=== PATIENT | male | born 1975 | race African-American/Black ===

== ENCOUNTER 2019-03-08 13:48 | Inpatient (IN) | payer OTHER ==
[2019-03-08] MEDS ORDERED: Insulin Regular 300 UNITS/3 ML VIAL SC PRN ×2 (15:14)
[2019-03-08] MEDS ORDERED: Ondansetron ODT 4 MG TAB PO PRN (15:14)
[2019-03-08] MEDS ORDERED: Acetaminophen 650 MG Suppository PR PRN (15:14)
[2019-03-08] MEDS ORDERED: Ondansetron PF 4 MG/2 ML Vial IVP PRN (15:14)
[2019-03-08] MEDS ORDERED: Dextrose 50% Abboject 50 ML SYRINGE SLOW IVP PRN (15:14)
[2019-03-08] MEDS ORDERED: Calcium Carbonate 500 MG ChewTAB PO PRN (15:14)
[2019-03-08] MEDS ORDERED: Dextrose 5% in Water 1,000 ML IV PRN (15:14)
[2019-03-08] MEDS ORDERED: Nicotine 14 MG PATCH TD PRN (15:19)
[2019-03-08] MEDS ORDERED: Labetalol HCl 100 MG/20 ML VIAL SLOW IVP PRN (15:19)
[2019-03-08 15:35] LABS: #Basophils 0.1 thou/uL (0.0-0.2); #Eosinphils 0.1 thou/uL (0.0-0.7); #Lymphocytes 3.7 thou/uL (1.20-3.40); #Monocytes 0.8 thou/uL (0.11-0.59); #Neutrophils 6.5 thou/uL (1.40-6.50); %Basophils 0.5 % (0.0-1.0); %Eosinophils 0.5 % (0.0-10.0); %Lymphocytes 33.4 % (21.0-51.0); %Monocytes 7.5 % (0.0-10.0); %Neutrophils 58.1 % (42.0-75.0); Hemoglobin 9.8 g/dL (14.0-18.0); Mean Corpuscular HGB CONC 34.1 g/dL (32.0-36.0); Mean Corpuscular Hemoglobin 29.3 pg (27.0-31.0); Mean Corpuscular Volume 86.1 fL (78.0-98.0); Mean Platelet Volume 8.3 fL (7.4-10.4); Platelet Count 291 thou/uL (130-400); RBC Distribution Width 11.8 % (11.5-14.5); Red Blood Cell (RBC) Count 3.33 mill/uL (4.70-6.10); White Blood Cell (WBC) Count 11.1 thou/uL (4.8-10.8)
[2019-03-08 15:55] LABS: Anion Gap 13 mmol/L (10-20); BUN (Urea Nitrogen) 40 mg/dL (8.9-20.6); Calc. Creatinine Clearance 0 mL/min (70-130); Calcium 8.1 mg/dL (7.8-10.44); Carbon Dioxide 19 mmol/L (22-29); Chloride 106 mmol/L (98-107); Estimated GFR-MDRD 83; Glucose 302 mg/dL (70-105); Potassium 4.9 mmol/L (3.5-5.1); Sodium 133 mmol/L (136-145)
[2019-03-08 15:57] LABS: Iron 234 ug/dL (65-175); Iron Binding Capacity, Total 225 mcg/dL (261-462)
[2019-03-08 16:08] LABS: Troponin I 0.028 ng/mL (< 0.028)
[2019-03-08] MEDS: Sodium Chloride 0.9% 1,000 ML IV SCH (18:12)
[2019-03-08 18:23] VITALS: BMI 35.4
[2019-03-08 19:36] LABS: Hemoglobin 9.4 g/dL (14.0-18.0); Platelet Count 270 thou/uL (130-400)
--- NOTE | 2019-03-08 22:26 | HP ---
PRIMARY CARE PHYSICIAN: At [facility]. CHIEF COMPLAINT: Hematemesis. HISTORY OF PRESENT ILLNESS: Mr. Church is a 43-year-old man with past medical history of hypertension, hyperlipidemia, and diabetes mellitus type 2, who had presented to [facility] earlier today after he experienced one episode of a large bright red blood emesis earlier today. He was transferred from [facility] with a suspected GI bleed. He states that the symptoms started earlier this morning, he had felt nauseous just before this event. However, denied any fever, chills, any headache, blurred vision, dizziness, chest pain, palpitations, shortness of breath, or abdominal pain. He states he felt fine leading up to the event and also denied any change in his stool. He had denied any history of liver disease or anticoagulation therapy at this time. His current hemoglobin shows level of 9.8 and type and screen obtained. REVIEW OF SYSTEMS: All other systems reviewed and found to be negative unless mentioned in the HPI. PAST MEDICAL HISTORY: Hypertension, hyperlipidemia, diabetes mellitus type 2. PAST SURGICAL HISTORY: Circumcision. PSYCHIATRIC HISTORY: None. SOCIAL HISTORY: He currently uses tobacco. He states he smokes roughly half pack per day and denies any alcohol or illicit drug use. He is currently incarcerated at [facility]. KNOWN ALLERGIES: No known drug allergies. HOME MEDICATIONS: 1. Amlodipine 10 mg oral daily. 2. Aspirin 81 mg daily. 3. Atenolol 100 mg oral daily. 4. Lisinopril 10 mg oral daily. 5. Metformin 500 mg twice daily. 6. Novolin. 7. Pravastatin 10 mg oral daily. PHYSICAL EXAMINATION: VITAL SIGNS: Blood pressure 119/64, pulse 114, respirations 18, temperature 98.7, O2 saturation 98% on room air. GENERAL: The patient is awake, alert, and oriented x3. He is currently lying comfortably in bed with shackles in place and in no acute distress at this time. HEENT: Atraumatic, normocephalic. Pupils are round and reactive to light. Extraocular muscles intact. Moist mucous membranes noted. NECK: Soft and supple. Trachea midline. CARDIOVASCULAR: Positive S1 and S2. The patient is slightly tachycardic on the monitor. Otherwise, no murmur auscultated. LUNGS: Clear to auscultation bilaterally. No wheezes, rales, or rhonchi. ABDOMEN: Soft, nontender. Bowel sounds present. EXTREMITIES: Moves all extremities equal. Pedal and radial pulses 2+ bilaterally. No edema noted. NEUROLOGIC: Cranial nerves 2 through 12 grossly intact. No focal deficits noted. Speech intact and normal. Gait not assessed. SKIN: Warm, dry and intact. No rashes. No ulceration noted. PSYCHIATRIC: Good mood and affect. LABORATORY DATA: WBC 11.1, RBC 3.33, hemoglobin 9.8, hematocrit 28.7, platelet 291. Sodium 133, potassium 4.9, anion gap 13, BUN 40, creatinine 0.98, estimated GFR 83, glucose 302, ferritin 258.62. Troponin 0.028. DIAGNOSTIC IMAGING: None. ASSESSMENT AND PLAN: 1. Suspected gastrointestinal bleed. We will place patient on PPI therapy at this time and consult GI Services for possible endoscopy for further evaluation. We will make the patient n.p.o. at this time and trend H and H and transfuse as needed. 2. Hypertension. Blood pressure and other vital signs currently stable at this time. Since he will be n.p.o., we will place on IV p.r.n. Antihypertensives as needed. 3. Hyperlipidemia. 4. History of diabetes mellitus type 2. As above, he will be n.p.o.; however, we will monitor Accu-Cheks and place the patient on the insulin sliding scale as needed. 5. Gastrointestinal prophylaxis. 6. Code status, full code. DISPOSITION: Pending further workup and clinical findings. Job ID: [id number]
--- NOTE | 2019-03-08 23:11 | CON ---
DATE OF CONSULTATION: 03/08/2019 REQUESTING PHYSICIAN: Dr. Dela Cruz. REASON FOR CONSULTATION: Hematemesis. HISTORY OF PRESENT ILLNESS: Mr. Jannie Church is a 43-year-old man, an inmate at [place] long term facility. He has a history of hypertension, hyperlipidemia, and diabetes. He denies any significant past gastrointestinal history or any known history of liver disease. He has a history of smoking and also alcohol use, though he has not had any alcohol for almost the past year since he has been incarcerated. He reports that this morning he awoke feeling fairly acutely nauseated and having some diaphoresis as well as dizzy spells. He did not have any syncopal episodes. However, the nausea worsened and he had an episode of acute michelle hematemesis, which was witnessed at his long term facility. This prompted his presentation to the [facility] where he was transferred here for further evaluation. He says he has not had any further episodes of hematemesis since then. His nausea persists, but has lessened a bit. He is not really having any abdominal pain. He has not had any bowel movements today and he says his last bowel movement yesterday was normal. Upon arrival, he is tachycardic to 115, though his blood pressures are normal. Hemoglobin is 9.8 and this is evidently down 1 point from having been checked earlier today. A PPI drip was started and he is being admitted for further evaluation. He has no other complaints. Notably, the patient underwent circumcision 8 days ago and says he has been taking aspirin as well as other [id number] pain relievers over the past week since then. REVIEW OF SYSTEMS: Full review of systems including constitutional, head, eyes, ears, nose, throat, GI, , cardiovascular, respiratory, musculoskeletal, neurologic systems is negative except as noted in the HPI. PAST MEDICAL HISTORY: Hypertension, hyperlipidemia, diabetes, circumcision 1 week ago on 02/28/2019. FAMILY HISTORY: Negative for significant GI illness. SOCIAL HISTORY: He does smoke. He admits to drinking alcohol heavily prior to incarceration, but none for the past 10-11 months. Denies drug use. ALLERGIES: NO KNOWN DRUG ALLERGIES. OUTPATIENT MEDICATIONS: 1. Amlodipine 10 mg daily. 2. Aspirin 325 mg daily. 3. Atenolol. 4. Lisinopril. 5. Metformin. 6. Novolin insulin. 7. Pravastatin. PHYSICAL EXAMINATION: VITAL SIGNS: Temperature 98.7, blood pressure 134/93, pulse 115, 99% oxygen saturation on room air. GENERAL: A 43-year-old gentleman lying in bed comfortably, in no distress. SKIN: No jaundice, no rashes were palpable. EYES: No scleral icterus. Extraocular movements intact. ENT: Mucous membranes moist. No oral lesions. LYMPH: No submandibular, supraclavicular lymphadenopathy. Thyroid nontender to palpation. HEART: Regular rate and rhythm. No murmur appreciated. LUNGS: Clear to auscultation bilaterally. ABDOMEN: Bowel sounds present. Soft, nontender to palpation throughout extremities. No peripheral edema. VESSELS: Radial pulses 2+ bilaterally. NEUROLOGIC: Cranial nerves 2-12 intact bilaterally. No focal deficits. LABORATORY STUDIES: WBC 11.1, hemoglobin 9.8, MCV 86.1, platelets 291. Sodium 133, potassium 4.9, BUN 40, creatinine 0.98, glucose 302, calcium 8.1. Troponin 0.028. Ferritin 258.6, iron 234, TIBC 225. ASSESSMENT/PLAN: 1. Hematemesis, single episode this morning. 2. Acute blood loss anemia. The patient's presentation is consistent with acute upper gastrointestinal bleeding from this morning. Note that he has not had any further episodes of hematemesis since this morning and he has not had any melenic stool either. He is mildly tachycardic, but otherwise stable. He is anemic with hemoglobin of 9.8, though I am not sure exactly what the acuity of this is. Given his risk factors, and presentation, peptic ulcer disease would lead the differential. He has no known evidence of liver disease, so varices seem unlikely and clinically, this does not appear to represent a variceal bleed. I agree with the Protonix IV infusion. This should be continued. I would keep him on n.p.o. status for now. We will plan for diagnostic EGD tomorrow; however, continue to trend hemoglobin and hematocrit and watch clinically. If the patient has significant change or deterioration in clinical status, this could always be performed on a more emergent basis tonight. 3. Please do not hesitate to call anytime with questions or concerns. 4. Thank you for the consultation. Job ID: [id number]
[2019-03-08 23:33] LABS: Hemoglobin 9.4 g/dL (14.0-18.0); Platelet Count 276 thou/uL (130-400)
[2019-03-09] MEDS: Sodium Chloride 0.9% 1,000 ML IV SCH ×4 (00:55→14:46)
[2019-03-09] MEDS: Pantoprazole 80 MG in Sodium Chloride 0.9% 100 ML IVP SCH ×2 (00:55→09:36)
[2019-03-09] MEDS: Melatonin 3 MG TAB PO PRN ×2 (02:34→23:21)
[2019-03-09 06:30] LABS: #Basophils 0.1 thou/uL (0.0-0.2); #Eosinphils 0.2 thou/uL (0.0-0.7); #Lymphocytes 4.1 thou/uL (1.20-3.40); #Monocytes 0.8 thou/uL (0.11-0.59); #Neutrophils 4.7 thou/uL (1.40-6.50); %Basophils 0.6 % (0.0-1.0); %Eosinophils 1.6 % (0.0-10.0); %Lymphocytes 42.2 % (21.0-51.0); %Neutrophils 47.6 % (42.0-75.0); Hemoglobin 8.2 g/dL (14.0-18.0); Mean Corpuscular HGB CONC 34.1 g/dL (32.0-36.0); Mean Corpuscular Hemoglobin 29.7 pg (27.0-31.0); Mean Corpuscular Volume 87.1 fL (78.0-98.0); Mean Platelet Volume 8.2 fL (7.4-10.4); Platelet Count 243 thou/uL (130-400); RBC Distribution Width 12.1 % (11.5-14.5); Red Blood Cell (RBC) Count 2.76 mill/uL (4.70-6.10); White Blood Cell (WBC) Count 9.8 thou/uL (4.8-10.8)
[2019-03-09 06:48] LABS: ALT (SGPT) 14 U/L (8-55); AST (SGOT) 11 U/L (5-34); Alkaline Phosphatase 55 U/L (40-150); Anion Gap 11 mmol/L (10-20); BUN (Urea Nitrogen) 29 mg/dL (8.9-20.6); Bilirubin, Total 0.3 mg/dL (0.2-1.2); Calc. Creatinine Clearance 199 mL/min (70-130); Carbon Dioxide 20 mmol/L (22-29); Chloride 110 mmol/L (98-107); Estimated GFR-MDRD Greater than 90; Globulin 2.4 g/dL (2.4-3.5); Glucose 126 mg/dL (70-105); Magnesium 1.7 mg/dL (1.6-2.6); Potassium 3.5 mmol/L (3.5-5.1); Protein, Total 5.4 g/dL (6.0-8.3); Sodium 137 mmol/L (136-145)
[2019-03-09] MEDS ORDERED: Succinylcholine Chloride 20 MG/ML 10 ml SYRINGE FS ONE (10:25)
[2019-03-09] MEDS ORDERED: Lidocaine 1% PF 5 ML VIAL ONE (10:25)
[2019-03-09] MEDS ORDERED: PROPOFOL 200 MG/20 ML VIAL ONE (10:25)
[2019-03-09] MEDS ORDERED: Fentanyl 100 MCG/2 ML VIAL ONE (13:33)
[2019-03-09] MEDS ORDERED: Ondansetron PF 4 MG/2 ML Vial ONE (13:52)
[2019-03-09] MEDS ORDERED: Promethazine HCl 25 MG/ML VIAL IM PRN (13:53)
[2019-03-09] MEDS ORDERED: Ondansetron HCl/PF 4 MG/2 ML Vial IVP PRN (13:53)
[2019-03-09] MEDS ORDERED: Promethazine HCl 25 MG/ML VIAL SLOW IVP PRN (13:53)
--- NOTE | 2019-03-09 15:27 | OP ---
DATE OF PROCEDURE: 03/09/2019 PROCEDURE PERFORMED: 1. Esophagogastroduodenoscopy with biopsy. 2. Injection of 1:10,000 epinephrine to a total dose of 4.5 mL. 3. Two hemoclips placed over the ulcer with visible vessel. PREOPERATIVE DIAGNOSIS: Gastrointestinal bleeding. POSTOPERATIVE DIAGNOSES: 1. Normal esophagus. 2. Normal gastroesophageal junction. 3. Normal fundus, gastric antrum, and gastric body. 4. Few gastric erosions in the gastric antrum. 5. Two ulcers over the incisura. One of the ulcers showing a visible vessel with no active bleeding. 6. Mild duodenitis. DESCRIPTION OF PROCEDURE: The patient was intubated and was given sedation by Anesthesia Department. A bite block was placed. A Pentax video gastroscope under direct vision passed down the oropharynx past the GE junction into the stomach and also subsequent descending duodenum. The stomach was completely free of any blood. The esophageal mucosa appeared normal throughout. The GE junction, no Sophia-Sol tear seen. Retroflexion failed to show any pathology in fundus or cardia. The gastric body, no pathology. The gastric antrum showed few erosions. There were 2 ulcerations seen near the incisura. One showed a visible vessel, but no active bleeding. The ulcer base appeared clean. 1:10,000 epinephrine injected over the ulcer base to a total dose of 4.5 mL. Following injection, two hemoclips were placed with good hemostasis. Biopsy was obtained of the gastric antrum and gastric body. The duodenal bulb showed mucosal edema, erythema. The descending duodenum, no pathology. RECOMMENDATIONS: 1. Continue IV Protonix. 2. Discontinue n.p.o. 3. Clear liquid diet. 4. He has no recurrence of bleeding. Hopefully, he can go back in the next 24 to 48 hours. Job ID: [id number]
--- NOTE | 2019-03-09 17:19 | PDOC.HOSPP ---
- Subjective Encounter Date: 03/09/19 Encounter Time: 10:00 Subjective: Mr. Church was seen today in follow-up of GI bleed. He does not have any complaints this morning. - Objective Vital Signs & Weight: Vital Signs (12 hours) Temp Pulse Resp BP Pulse Ox 03/09/19 15:50 98.6 F 94 20 122/84 99 03/09/19 14:50 97 18 133/66 98 03/09/19 14:35 95 18 152/84 H 99 03/09/19 11:16 98.6 F 93 14 130/69 99 03/09/19 07:54 97.6 F 92 16 123/66 99 Weight Weight 275 lb 14.4 oz I&O: 03/08/19 03/09/19 03/10/19 06:59 06:59 06:59 Intake Total 1828 Balance 1828 Result Diagrams: 03/09/19 06:18 03/09/19 06:18 Additional Labs: Accuchecks 03/09/19 03/09/19 03/09/19 17:03 10:23 05:40 POC Glucose 183 H 135 H 136 H 03/09/19 03/08/19 00:43 21:22 POC Glucose 229 H 253 H Hospitalist ROS - Medication Medications: Active Medications Generic Name Dose Route Start Last Admin Trade Name Freq PRN Reason Stop Dose Admin Sodium Chloride 1,000 mls @ 150 mls/hr 03/08/19 15:15 03/09/19 14:46 Normal Saline 0.9% IV 1,000 mls .[id number] VON Administration Melatonin 3 mg 03/09/19 02:18 03/09/19 02:34 Melatonin PO 3 mg HSPRN PRN Administration Insomnia - Exam Eye: PERRL, anicteric sclera Heart: RRR, no murmur, no gallops, no rubs, normal peripheral pulses Respiratory: CTAB, no wheezes, no rales, no ronchi, normal chest expansion, no tachypnea, normal percussion Gastrointestinal: soft, non-tender, non-distended, normal bowel sounds, no palpable masses, no hepatomegaly, no splenomegaly Extremities: no cyanosis, no clubbing, no edema Hosp A/P (1) Upper GI bleed Code(s): K92.2 - GASTROINTESTINAL HEMORRHAGE, UNSPECIFIED Status: Acute (2) Hypertension Code(s): I10 - ESSENTIAL (PRIMARY) HYPERTENSION Status: Chronic (3) Diabetes mellitus type 2 in nonobese Code(s): E11.9 - TYPE 2 DIABETES MELLITUS WITHOUT COMPLICATIONS Status: Chronic - Plan * Upper GI bleed- EGD findings noted. He has an ulceration at the Incisura. There was a visible vessel, without sides of active bleeding * Continue IV Protonix * Continue to monitor his H&H * HTN- blood pressure is stable * DM-blood glucose is stable * Hopefully discharge in 1-2 days
[2019-03-09] MEDS: Pantoprazole 80 MG in Sodium Chloride 0.9% 100 ML IVPB SCH (20:30)
[2019-03-10] MEDS: Acetaminophen 325 MG TAB PO PRN ×2 (03:19→17:14)
[2019-03-10] MEDS: Sodium Chloride 0.9% 1,000 ML IV SCH ×2 (03:51→04:18)
[2019-03-10 06:39] LABS: #Basophils 0.1 thou/uL (0.0-0.2); #Eosinphils 0.2 thou/uL (0.0-0.7); #Lymphocytes 2.7 thou/uL (1.20-3.40); #Monocytes 0.5 thou/uL (0.11-0.59); #Neutrophils 3.5 thou/uL (1.40-6.50); %Basophils 0.7 % (0.0-1.0); %Eosinophils 3.1 % (0.0-10.0); %Lymphocytes 39.1 % (21.0-51.0); %Monocytes 6.6 % (0.0-10.0); %Neutrophils 50.5 % (42.0-75.0); Hemoglobin 6.7 g/dL (14.0-18.0); Mean Corpuscular HGB CONC 35.1 g/dL (32.0-36.0); Mean Corpuscular Hemoglobin 29.6 pg (27.0-31.0); Mean Corpuscular Volume 84.4 fL (78.0-98.0); Mean Platelet Volume 8.4 fL (7.4-10.4); Platelet Count 215 thou/uL (130-400); Red Blood Cell (RBC) Count 2.26 mill/uL (4.70-6.10)
[2019-03-10] MEDS: Pantoprazole 80 MG in Sodium Chloride 0.9% 100 ML IVPB SCH (07:24)
--- NOTE | 2019-03-10 09:56 | PDOC.HOSPP ---
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 S/p EGD showing 2 gastric ulcers. Feeling better. No further bleeding wants to eat. - Objective Vital Signs & Weight: Vital Signs (12 hours) Temp Pulse Resp BP Pulse Ox 03/10/19 08:00 98.6 F 91 14 125/81 100 03/10/19 03:15 98.2 F 95 19 121/63 99 03/09/19 23:59 98.2 F 93 16 120/61 94 L Weight Weight 275 lb 14.4 oz I&O: 03/09/19 03/10/19 03/11/19 06:59 06:59 06:59 Intake Total 1828 2800 0 Output Total 1750 Balance 1828 1050 0 Result Diagrams: 03/10/19 05:52 03/09/19 06:18 Additional Labs: Accuchecks 03/10/19 03/09/19 03/09/19 05:49 17:03 10:23 POC Glucose 126 H 183 H 135 H Hospitalist ROS - Medication Medications: Active Medications Generic Name Dose Route Start Last Admin Trade Name Freq PRN Reason Stop Dose Admin Acetaminophen 650 mg 03/08/19 15:14 03/10/19 03:19 Tylenol PO 650 mg Q4H PRN Administration Headache/Fever/Mild Pain (1-3) Pantoprazole Sodium 80 mg/ 100 mls @ 10 mls/hr 03/09/19 16:45 03/10/19 07:24 Sodium Chloride IVPB 100 mls INF VON Administration Melatonin 3 mg 03/09/19 02:18 03/09/19 23:21 Melatonin PO 3 mg HSPRN PRN Administration Insomnia - Exam General Appearance: awake alert Eye: anicteric sclera ENT: normocephalic atraumatic, moist mucosa Neck: supple, symmetric Heart: RRR, murmur present Respiratory: no wheezes, no rales, no ronchi, normal chest expansion Gastrointestinal: soft, non-tender, non-distended, normal bowel sounds Extremities: no cyanosis, no edema Neurological: cranial nerve grossly intact, no focal deficits Musculoskeletal: normal tone, no muscle wasting Psychiatric: normal affect, A&O x 3 Hosp A/P (1) Upper GI bleed Code(s): K92.2 - GASTROINTESTINAL HEMORRHAGE, UNSPECIFIED Status: Acute (2) Gastric ulcer Code(s): K25.9 - GASTRIC ULCER, UNSP ACUTE OR CHRONIC, W/O HEMOR OR PERF Status: Acute (3) Acute on chronic blood loss anemia Code(s): D62 - ACUTE POSTHEMORRHAGIC ANEMIA Status: Acute (4) Diabetes mellitus Code(s): E11.9 - TYPE 2 DIABETES MELLITUS WITHOUT COMPLICATIONS Status: Acute (5) Gastric erosions Code(s): K25.9 - GASTRIC ULCER, UNSP ACUTE OR CHRONIC, W/O HEMOR OR PERF Status: Acute (6) Duodenitis Code(s): K29.80 - DUODENITIS WITHOUT BLEEDING Status: Acute (7) Hypertension Code(s): I10 - ESSENTIAL (PRIMARY) HYPERTENSION Status: Chronic - Plan Transfuse 1 PRBC. Monitor H/H and transfuse further as needed Continue Protonix infusion. Transfusion to oral PPI Diet as per GI. Possible discharge tomorrow if H/H stays stable.
--- NOTE | 2019-03-10 19:01 | PRG ---
DATE OF SERVICE: 03/10/2019 SUBJECTIVE: Mr. Church is feeling pretty well. No abdominal pain, nausea, or vomiting. He is tolerating his regular diet today. He has not had any bowel movement, certainly no melena today. He has remained hemodynamically stable though he does have a low-grade fever. He is passing gas, hemoglobin had declined further to 6.7, and he received 1 unit RBC transfusion. No other complaints. OBJECTIVE: VITAL SIGNS: Temperature 100.2, pulse 104, blood pressure 105/57, 97% oxygen saturation on room air. GENERAL: No acute distress. HEART: Regular rate and rhythm. LUNGS: Clear to auscultation bilaterally. ABDOMEN: Soft, nontender to palpation. EXTREMITIES: No peripheral edema. LABORATORY STUDIES: WBC 7.0, hemoglobin 6.7, MCV 84.4, platelets 215. BUN is down to 29, creatinine 0.84. Sodium 137, potassium 3.5, glucose 181. LFTs all normal with total bilirubin 0.3, alkaline phosphatase 55, AST 11, ALT 14. ASSESSMENT/PLAN: 1. Upper gastrointestinal hemorrhage from a gastric ulcer with visible vessel, status post hemoclip placement and epinephrine injection by Dr. Galvez yesterday. 2. Acute blood loss anemia. The patient has had no evidence of further overt bleeding over the past 24 hours since his upper endoscopy. Note the interval decline in hemoglobin and he is now status post 1 unit RBC transfusion. Expect H and H to stabilize. He is tolerating his diet. Would keep him on the Protonix drip overnight. If no further evidence of bleeding tomorrow, can be switched to 40 mg p.o. twice daily. He will need to remain on this for at least two months. Gastric biopsies are back and showed no H. pylori. Ulceration is likely secondary to pain medications he has been taking over the past week since his circumcision. Avoid further NSAIDs. Please call anytime with questions or concerns or if there is concern for recurrent bleeding. Job ID: [id number]
[2019-03-10 21:41] LABS: Hemoglobin 8.4 g/dL (14.0-18.0)
[2019-03-11] MEDS: Acetaminophen 325 MG TAB PO PRN (03:19)
[2019-03-11 05:56] LABS: Hemoglobin 8.1 g/dL (14.0-18.0); Mean Corpuscular HGB CONC 34.9 g/dL (32.0-36.0); Mean Corpuscular Volume 85.8 fL (78.0-98.0); Mean Platelet Volume 7.8 fL (7.4-10.4); Platelet Count 242 thou/uL (130-400); RBC Distribution Width 12.4 % (11.5-14.5); Red Blood Cell (RBC) Count 2.69 mill/uL (4.70-6.10); White Blood Cell (WBC) Count 7.7 thou/uL (4.8-10.8)
[2019-03-11 06:16] LABS: Anion Gap 9 mmol/L (10-20); BUN (Urea Nitrogen) 11 mg/dL (8.9-20.6); Calc. Creatinine Clearance 201 mL/min (70-130); Calcium 8.4 mg/dL (7.8-10.44); Carbon Dioxide 24 mmol/L (22-29); Chloride 106 mmol/L (98-107); Estimated GFR-MDRD Greater than 90; Glucose 126 mg/dL (70-105); Potassium 3.4 mmol/L (3.5-5.1); Sodium 136 mmol/L (136-145)
[2019-03-11 07:52] VITALS: BP 135/85; TEMP 99.2
--- NOTE | 2019-03-11 09:08 | PDOC.EVN ---
Event Note - Event Note Event Note: Discharged. #[id number]
--- NOTE | 2019-03-11 09:58 | DIS ---
DATE OF ADMISSION: 03/08/2019 DATE OF DISCHARGE: 03/11/2019 DISCHARGE DIAGNOSES: 1. Acute upper gastrointestinal hemorrhage. 2. Acute blood loss anemia. 3. Gastric ulcers. 4. Gastric erosions. 5. Acute duodenitis. 6. Diabetes mellitus. 7. Hypertension. 8. Obesity. CONSULTS: Gastroenterology. PROCEDURE PERFORMED: Esophagogastroduodenoscopy with biopsy, injection of epinephrine and application of two hemoclips over the ulcer with visible vessels. FINDINGS: Normal esophagus, normal gastroesophageal junction, normal fundus, gastric antrum and gastric body. Few gastric erosions in the gastric antrum as well as two ulcers over the incisura with one of the ulcers showing visible vessel with no active bleeding. Mild duodenitis. HOSPITAL COURSE: A 43-year-old [facility] inmate with known history of hypertension, hyperlipidemia, and diabetes who takes NSAIDs for pain after recent circumcision, admitted with hematemesis. Impression of acute GI bleeding with acute blood loss anemia was made and patient was started on IV fluid and Protonix infusion. GI consult was obtained and the patient subsequently have EGD, which showed two gastric ulcers requiring hemoclips and epinephrine injection. Postprocedure hemoglobin dropped further and patient was transfused 1 unit of packed red blood cells. Following which, hemoglobin remained stable. The patient was later restarted on diet which was well tolerated. He remained hemodynamically stable with no further hematemesis or melena and was subsequently discharged back to the long-term. The patient was instructed not to take NSAIDs or aspirin henceforth and he is to be on Protonix 40 mg p.o. b.i.d. for at least 2 months. PHYSICAL EXAMINATION: VITAL SIGNS: Temperature 99.2, pulse 90, respiratory rate 18, SpO2 of 98% on room air, blood pressure is 135/85. GENERAL: Obese, heavy beat male in no distress. Afebrile. Anicteric. Acyanotic. HEENT: Normocephalic, atraumatic. Oral mucosa is moist. CARDIOVASCULAR: Regular rhythm and rate with normal heart sounds 1 and 2. RESPIRATORY: Good air entry bilaterally with no crackle or rhonchi or use of accessory muscles. GI: Obese, soft, nontender, nondistended with normal bowel sounds. EXTREMITIES: Grossly normal looking, atraumatic with no edema or erythema. Distal pulses are palpable. CREATIVE RECRUITER: Conscious and alert, oriented x3 with appropriate mental status. Cranial nerves 2 through 12 are grossly intact. The patient is ambulant. DISCHARGE CONDITION: Improved and stable. DISCHARGE DISPOSITION: Back to long-term. DISCHARGE MEDICATIONS: See discharge med rec. The patient is to be on Protonix 40 mg p.o. b.i.d. for at least 2 months. The patient also was advised not to take NSAIDs as well as aspirin. Discharge took more than 33 minutes. Job ID: [id number]
== END 2019-03-11 11:23 | DRG 378 ==
LOC: ERS 13:48 → EEVIPCON 13:48 → OBSVTOIN 15:19 → 2SW 15:19 → 2NO 03-10 11:49
PROVIDERS: ADMIT Internal Medicine; ATTEND Internal Medicine
PROC: 0W3P8ZZ Control Bleeding in Gastrointestinal Tract, Via Natural or Artificial Opening Endoscopic (ICD-10-PCS; principal; 2019-03-09)
PROC: 0DB68ZX Excision of Stomach, Via Natural or Artificial Opening Endoscopic, Diagnostic (ICD-10-PCS; 2019-03-09)
PROC: 3E0G8GC Introduction of Other Therapeutic Substance into Upper GI, Via Natural or Artificial Opening Endoscopic (ICD-10-PCS; 2019-03-09)
PROC: 30233N1 Transfusion of Nonautologous Red Blood Cells into Peripheral Vein, Percutaneous Approach (ICD-10-PCS; 2019-03-10)
DX: K25.4 Chronic or unspecified gastric ulcer with hemorrhage (principal); D62 Acute posthemorrhagic anemia; I10 Essential (primary) hypertension; E78.5 Hyperlipidemia, unspecified; E11.9 Type 2 diabetes mellitus without complications; F17.210 Nicotine dependence, cigarettes, uncomplicated; T39.395A Adverse effect of other nonsteroidal anti-inflammatory drugs [NSAID], initial encounter; K29.80 Duodenitis without bleeding; E66.9 Obesity, unspecified; Z79.84 Long term (current) use of oral hypoglycemic drugs; Z79.82 Long term (current) use of aspirin; Z68.35 Body mass index [BMI] 35.0-35.9, adult; Z87.891 Personal history of nicotine dependence
CPT/HCPCS: 36415; 36416; 36430; 80048; 80053; 82728; 83540; 83550; 83735; 84484; 85025; 85027; 86850; 86900; 86901; 88305; 88312; 96361; 96365; 96366; C9113; J1815; J2405; J3010; J3490; P9016; Q0162